=== PATIENT | male | born 1975 ===

== ENCOUNTER 2022-12-30 19:52 | Emergency (ER) | payer OTHER, SELFPAY ==
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
[2022-12-30 20:31] VITALS: BP 140/83; PULSE 89; RESP 18; TEMP 36.7; O2SAT 94; BMI 34.9
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
[2022-12-31 00:18] VITALS: BP 130/75; PULSE 70; RESP 16; TEMP 36.8; O2SAT 98
== END 2022-12-31 00:42 | disposition home or self-care (01) ==
PROVIDERS: Emergency Provider Emergency Medicine Emergency Medical Services
DX: S20.212A Contusion of left front wall of thorax, initial encounter (principal); V43.52XA Car driver injured in collision with other type car in traffic accident, initial encounter; Y93.89 Activity, other specified; Y92.414 Local residential or business street as the place of occurrence of the external cause; Y99.9 Unspecified external cause status
CPT/HCPCS: 71046; 99283